=== PATIENT | female | born 1935 | race Caucasian/White ===

== ENCOUNTER 2019-04-21 12:49 | Inpatient (IN) ==
[2019-04-21 13:35] LABS: Albumin 3.6 G/DL (3.4-5.0); Bilirubin,Total 0.9 MG/DL (0.2-1.0); Osmolality,Calculated 284.3 MOS/KG (273-304); Total Protein 6.9 G/DL (6.4-8.3)
[2019-04-21 15:39] LABS: Basophils % 0.5 % (0.0-0.8); Eosinophils # 0.1 10*3/uL (0.0-0.87); Eosinophils % 1.1 % (0.00-10.9); Hematocrit 43.3 VOL% (35.7-47.0); Hemoglobin 14.2 GM/DL (12.0-16.0); Immature Granulocytes % 0.3 %; Immature Granulocytes Absolute 0.02 #; Lymphocytes # 1.7 10*3/uL (1.4-4.0); Lymphocytes % 27.8 % (21.3-54.2); Mean Corpuscular HGB Conc 32.8 GM/DL (32-36); Mean Corpuscular Volume 94.1 FL (87-102); Mean Platelet Volume 11.3 FL (9.6-12.0); Monocytes % 5.6 % (1.7-12.7); Neutrophils % 64.7 % (38.7-73.9); Platelet Count 146 T/CUMM (130-400); Red Cell Distribution Width 14.2 % (9.3-17.3); White Blood Count 6.2 T/CUMM (4-12)
[2019-04-21 15:50] LABS: PT Patient Result 10.6 SECS (9.6-12.2); Partial Thromboplastin Time 25.9 SECS (20.8-36.0)
[2019-04-21] MEDS ORDERED: ACETAMINOPHEN 325 MG TABLET PO PRN (21:13)
[2019-04-21] MEDS: SIMVASTATIN 40 MG TABLET PO SCH (22:11)
[2019-04-21] MEDS: MEMANTINE 10 MG TABLET PO SCH (22:11)
[2019-04-21] MEDS: ESCITALOPRAM 10 MG TABLET PO SCH (22:11)
[2019-04-22 05:29] LABS: Basophils % 0.7 % (0.0-0.8); Eosinophils # 0.1 10*3/uL (0.0-0.87); Eosinophils % 2.4 % (0.00-10.9); Hematocrit 40.2 VOL% (35.7-47.0); Hemoglobin 13.3 GM/DL (12.0-16.0); Immature Granulocytes % 0.2 %; Immature Granulocytes Absolute 0.01 #; Lymphocytes # 1.7 10*3/uL (1.4-4.0); Lymphocytes % 40.2 % (21.3-54.2); Mean Corpuscular HGB Conc 33.1 GM/DL (32-36); Mean Corpuscular Volume 94.1 FL (87-102); Mean Platelet Volume 10.9 FL (9.6-12.0); Monocytes % 8.6 % (1.7-12.7); Neutrophils % 47.9 % (38.7-73.9); Platelet Count 130 T/CUMM (130-400); Red Blood Count 4.27 MC/CUMM (3.8-5.5); White Blood Count 4.2 T/CUMM (4-12)
[2019-04-22 06:07] LABS: Albumin 2.9 G/DL (3.4-5.0); Bilirubin,Total 0.8 MG/DL (0.2-1.0); Calcium 8.6 MG/DL (8.5-10.1); Osmolality,Calculated 280.4 MOS/KG (273-304); Risk Ratio 1.97; Total Protein 5.9 G/DL (6.4-8.3); VLDL CHOLESTEROL 16.4 MG/DL
[2019-04-22] MEDS: LEVOTHYROXINE 50 MCG TABLET PO SCH (06:13)
[2019-04-22] MEDS ORDERED: POTASSIUM CHLORIDE 20 MEQ TABLET PO PRN (07:36)
[2019-04-22] MEDS ORDERED: QUEtiapine 25 MG TABLET PO SCH (16:00)
[2019-04-22] MEDS ORDERED: POTASSIUM CHLORIDE 20 MEQ TABLET PO ONE (16:18)
[2019-04-22] MEDS: MEMANTINE 10 MG TABLET PO SCH ×2 (16:25→21:58)
[2019-04-22] MEDS: ASPIRIN EC 81 MG TABLET PO SCH (16:25)
[2019-04-22] MEDS: amLODIPine 5 MG TABLET PO SCH (16:25)
[2019-04-22] MEDS: DONEPEZIL 10 MG TABLET PO SCH (16:25)
[2019-04-22 18:13] LABS: Apearance,Urine Slightly Hazy (Clear); Bilirubin,Urine Negative (Negative); Blood, Urine Negative (Negative); Calcium Oxalate Crystals,Urine Occasional /HPF (Few); Glucose,Urine (UA) Negative (Negative); Hyaline Casts,Urine 1 /LPF (0-3); Ketones,Urine 80 mg/dL (Negative); Mucus,Urine Many /LPF (Occasional); Nitrite,Urine Negative (Negative); Protein,Urine Negative; RBC,Urine 2 /HPF (0-4); Squamous Epithelial Cell,Urine Occasional /HPF (0-10); Urine Color Amber (Yellow); Urine Specific Gravity 1.035 (1.001-1.035); Urine Urobilinogen < 2.0 EU/DL (0.2-1.0); WBC,Urine 8 /HPF (0-6)
[2019-04-22] MEDS: SIMVASTATIN 40 MG TABLET PO SCH (21:59)
[2019-04-22] MEDS: ESCITALOPRAM 10 MG TABLET PO SCH (22:00)
[2019-04-23 04:42] LABS: Calcium 8.6 MG/DL (8.5-10.1)
[2019-04-23] MEDS ORDERED: POTASSIUM CHLORIDE RIDER 10 MEQ in PREMIX 1 EACH IV PRN (06:59)
[2019-04-23] MEDS: LEVOTHYROXINE 50 MCG TABLET PO SCH ×2 (07:03→09:07)
[2019-04-23 08:29] VITALS: BP 133/72
[2019-04-23] MEDS: DONEPEZIL 10 MG TABLET PO SCH (09:07)
[2019-04-23] MEDS: amLODIPine 5 MG TABLET PO SCH (09:07)
[2019-04-23] MEDS: MEMANTINE 10 MG TABLET PO SCH (09:07)
[2019-04-23] MEDS: ASPIRIN EC 81 MG TABLET PO SCH (09:07)
== END 2019-04-23 11:08 | disposition home or self-care (01) | DRG 313 ==
LOC: N.ED 12:49 → N.EDINP 18:49 → N.TELES 20:12
PROVIDERS: ADMIT Internal Medicine; ATTEND Internal Medicine